=== PATIENT | male | born 1935 | race Caucasian/White ===

== ENCOUNTER 2016-08-29 08:29 | Inpatient (IN) | payer MEDICARE, OTHER ==
[~2016-08-29] VITALS: Ht 177.8 cm; Wt 66.9 kg
[~2016-08-29 08:29] MED LIST: ALEVE 220MG220 MG PO; ASPI325T6 PO; ASPIRIN 32325 MG/TA1 PO; ASPIRIN E.C. 8181 MG PO; FERROUS SU325 MG/TAB PO; FOLIC ACID0.4 MG PO; GENTEAL 0.25%-025 ML OP; GENTEAL 10 ML10 M1 OP; HEPARIN LOCK FLU5 M1 IV; INVANZ INJ1 G/VIAL IV; MASON NATURAL1200 MG PO; NIACOR500 MG PO; NORCO 325 MG-7.1 TAB PO; NORVASC 5MG5 MG/TAB PO; NS INT FLUSH 1010 ML IV; PERCOCET 325 MG1 TA2 PO; PRINIVIL20 MG PO; TYLENOL 325MG325 MG PO; ULTRAM 50MG TAB50 MG PO; VITAMIN C500 MG PO; XALATAN EYE DROPS OU; ZESTRIL 20MG TA20 MG PO; ZOCOR 40MG40 MG PO
[2016-10-10] VITALS (10 sets, daily range): BP systolic 93–133; BP diastolic 38–84; PULSE 50–59; TEMP 97.4–99.3
[2016-10-11 02:12] VITALS: BP 120/44; PULSE 62; TEMP 98.9
[2016-10-11 04:37] VITALS: BP 122/62; PULSE 72; TEMP 98.9
[2016-10-11 06:08] LABS: HEMATOCRIT 32.5 % (42.0-52.0); HEMOGLOBIN 10.8 g/dl (13.5-18.0)
[2016-10-11] MEDS ORDERED: ASPIRIN 32325 MG/TA1 PO (07:09)
[2016-10-11] MEDS ORDERED: CELEBREX 200MG200 MG PO (07:09)
[2016-10-11] MEDS ORDERED: NORCO 325 MG-7.1 TAB PO (07:10)
[2016-10-11] MEDS ORDERED: ULTRAM 50MG TAB50 MG PO (07:10)
[2016-10-11 07:12] VITALS: BP 126/63; PULSE 83; TEMP 97.8
[2016-10-11 12:00] VITALS: BP 138/56; PULSE 73; TEMP 97.8
[2016-10-11 15:47] VITALS: BP 103/36; PULSE 65; TEMP 97.3
[2016-10-11 20:00] VITALS: BP 155/59; PULSE 74; TEMP 98.3
[2016-10-12 04:24] VITALS: BP 166/56; PULSE 78; TEMP 98.7
[2016-10-12 07:34] LABS: HEMATOCRIT 30.3 % (42.0-52.0); HEMOGLOBIN 10.3 g/dl (13.5-18.0)
[2016-10-12 08:48] VITALS: BP 126/56; PULSE 72; TEMP 98.3
== END 2016-10-12 11:50 | disposition home or self-care (01) | DRG 468 ==
LOC: JCC 10-10 09:51 → SURG 10-10 09:51 → JCC 10-10 12:00
PROVIDERS: Orthopaedic Surgery
PROC: 0SPD0JZ Removal of Synthetic Substitute from Left Knee Joint, Open Approach (ICD-10-PCS; 2016-10-10)
PROC: 0SRD0J9 Replacement of Left Knee Joint with Synthetic Substitute, Cemented, Open Approach (ICD-10-PCS; principal; 2016-10-10 13:00)
DX: T84.54XA Infection and inflammatory reaction due to internal left knee prosthesis, initial encounter (principal); I10 Essential (primary) hypertension; Z87.891 Personal history of nicotine dependence
CPT/HCPCS: A4315; A9284; C1713; C1776; J0690; J1885; J2250; J2704; J7120

== ENCOUNTER → 2016-08-30 | Outpatient (CLI) | payer MEDICARE, OTHER ==
[~2016-08-30] MED LIST changes: +CELEBREX 200MG200 MG PO
[2016-08-30 14:40] LABS: MEAN CELL VOLUME 94 fl (80.0-100.0); MEAN CORPUSCULAR HGB CONC 33 g/dl (33.0-37.0); MEAN PLATELET VOLUME 9.3 fl (7.4-10.4); PLATELET COUNT 291 K/mm3 (130-400); REDCELL DISTRIBUTION WIDTH-CV 15.2 % (11.5-14.5); WHITE BLOOD COUNT 6.2 K/mm3 (4.8-10.8)
[2016-08-30 14:42] LABS: HEMATOCRIT 34.7 % (42.0-52.0); HEMOGLOBIN 11.6 g/dl (13.5-18.0); MEAN CORPUSCULAR HEMOGLOBIN 31 pg (27.0-31.0)
[2016-08-30 15:02] LABS: ERYTHROCYTE SEDIMENTATION RATE 24 mm/hr (0-30)
== END ==
LOC: COL.LAB 14:16
PROVIDERS: Orthopaedic Surgery
DX: Z47.89 Encounter for other orthopedic aftercare (principal); M25.862 Other specified joint disorders, left knee

== ENCOUNTER → 2016-10-01 | Outpatient (CLI) | payer MEDICARE, OTHER | LOC: COL.LAB 12:29 | DX: Z01.812 Encounter for preprocedural laboratory examination (principal); M25.862 Other specified joint disorders, left knee ==